=== PATIENT | female | born 1990 | race Caucasian/White ===

== ENCOUNTER 2016-11-18 09:11 | Emergency (ER) | payer OTHER ==
[~2016-11-18] VITALS: Ht 157.5 cm; Wt 107.7 kg
[~2016-11-18 09:11] MED LIST: ACET-2247 PO; ANTIBIOTIC PO
[2016-11-18] MEDS ORDERED: BACTDSB PO (09:26)
[2016-11-18 11:26] VITALS: BP 119/95
== END 2016-11-18 11:30 | disposition home or self-care (01) ==
LOC: EMS 09:13
DX: Z48.00 Encounter for change or removal of nonsurgical wound dressing (principal); L02.415 Cutaneous abscess of right lower limb; Z88.0 Allergy status to penicillin
CPT/HCPCS: 99282